=== PATIENT | male | born 1935 | race Caucasian/White ===

== ENCOUNTER → 2017-07-18 | Outpatient (CLI) | payer OTHER, BC ==
[~2017-07-18] MED LIST: ASPIRIN81 M2 PO; CALCIUM 600 +1 EAC1 PO; FISH OIL 1,0001 EAC5 PO; FISH OIL 1,2001 EAC4 PO; FLAX SEED OIL1000 MG PO; FLOMAX0.4 MG PO; GLUCOSAMINE &1 EAC1 PO; LEVOTHYROXINE0.05 MG PO; LIPITOR10 MG PO; MULTIVITAMINS PO; NAPROSYN500 MG PO; PERCOCET PO; PROMETHAZINE HC25 M1 PO
== END ==
LOC: CAT 12:58
DX: K42.9 Umbilical hernia without obstruction or gangrene (principal); M47.896 Other spondylosis, lumbar region

== ENCOUNTER → 2020-01-27 | Outpatient (CLI) | payer OTHER, BC | LOC: ULTRA 12:26 | DX: N64.4 Mastodynia (principal); Z85.3 Personal history of malignant neoplasm of breast ==

== ENCOUNTER 2020-02-22 16:26 | Inpatient (IN) | payer OTHER, BC ==
[~2020-02-22] VITALS: Ht 152.4 cm; Wt 85.8 kg
[2020-02-22 16:38] VITALS: BP 112/44
[2020-02-22 17:42] LABS: ABSOLUTE NEUTROPHILS 12.1 thou/uL (1.4-8.2); BASOPHILS 0.2 % (0.0-2.0); EOSINOPHILS 0.1 % (0.0-3.0); HEMOGLOBIN 11.9 gm/dL (14.0-18.0); LYMPHOCYTES 7.3 % (24.0-44.0); MCH 31.6 pg (26.0-34.0); MCHC 33.9 g/dL (28.0-37.0); MCV 93.3 fL (80.0-100.0); MONOCYTES 7.6 % (1.0-8.0); PLATELET COUNT 185 thou/uL (150-400); POLYS 84.8 % (36.0-66.0); RBC 3.75 mil/uL (4.50-6.00); RDW 13.1 % (10.5-14.5); WBC 14.2 thou/uL (4.0-11.0)
[2020-02-22 17:49] LABS: CALCIUM 9.9 mg/dL (8.5-10.1); CREATININE 1.2 mg/dL (0.7-1.3)
[2020-02-22] MEDS ORDERED: PROLOPRIM100 MG PO (17:50)
[2020-02-22 17:59] LABS: ALBUMIN 3.2 g/dL (3.4-5.0); TOTAL BILIRUBIN 0.8 mg/dL (<0.1-1.0); TOTAL PROTEIN 6.3 g/dL (6.4-8.2); TROPONIN-I 0.1 ng/mL (<0.06)
[2020-02-22 20:11] LABS: URINE BILIRUBIN NEGATIVE (Negative); URINE BLOOD 2+ (Negative); URINE CLARITY SL CLOUDY; URINE COLOR YELLOW; URINE GLUCOSE-RANDOM* NEGATIVE (Negative); URINE KETONES NEGATIVE (Negative); URINE PROTEIN (DIPSTICK) TRACE (Negative); URINE UROBILINOGEN 0.2 E.U./dl (0.2-1.0)
[2020-02-22 20:14] LABS: URINE LEUKOCYTES-REFLEX 3+ (Negative); URINE NITRITE-REFLEX POSITIVE (Negative)
[2020-02-22 20:21] LABS: SQUAMOUS None Seen /LPF (0-3)
[2020-02-22 20:22] LABS: BACTERIA-REFLEX >30 Many /HPF (None Seen); CASTS None Seen /LPF (None Seen); CRYSTALS None Seen /LPF (None Seen); URINE RBC None Seen /HPF (0-2)
[2020-02-22 21:42] VITALS: BP 140/57
[2020-02-22 21:59] LABS: CHOLESTEROL 96 mg/dL (<200); HDL CHOLESTEROL 41 mg/dL (>40); LDL CHOLESTEROL 44 mg/dL (<100); TC:HDL 2.3 Ratio (Not establshd); TRIGLYCERIDE 57 mg/dL (<150); VLDL 11 mg/dL (<40)
[2020-02-22 22:05] LABS: SERUM ASSESSMENT Clear
[2020-02-22 22:30] VITALS: BP 149/52
[2020-02-22 22:45] VITALS: BP 149/52
[2020-02-23] VITALS (7 sets, daily range): BP systolic 114–140; BP diastolic 54–70
[2020-02-23 04:16] LABS: HEMATOCRIT 32.8 % (42.0-52.0); HEMOGLOBIN 11.1 gm/dL (14.0-18.0); MCH 31.7 pg (26.0-34.0); MCHC 33.7 g/dL (28.0-37.0); MCV 93.8 fL (80.0-100.0); RBC 3.5 mil/uL (4.50-6.00); RDW 13.1 % (10.5-14.5); WBC 13.4 thou/uL (4.0-11.0)
[2020-02-23 04:32] LABS: CALCIUM 9.3 mg/dL (8.5-10.1); CREATININE 1.1 mg/dL (0.7-1.3); TROPONIN-I 0.09 ng/mL (<0.06)
--- NOTE | 2020-02-23 13:07 | EKG ---
[facility] [place] [address] ELECTROCARDIOGRAM REPORT Name: ADELIA BOYLE Room #: 354-P ADM IN M.R.#: [id number] Admission: 02/22/20 Attend Phys: Terrance Maharaj MD Discharge: Date of : 39 Report #: [id number] THIS REPORT FOR: cc: Jet Yuen James A. DO Couchonnal, Luis F. 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 Head: renan : 1935 Requested By: Esther Hyatt Order Number: [id number] MD: Carlos Merida Measurements Intervals [place] Rate: 70 P: 3 CO: 204 QRS: -47 QRSD: 121 T: 40 QT: 401 QTc: 433 Interpretive Statements Sinus rhythm Left bundle branch block Baseline wander in lead(s) V3 Compared to ECG 07/22/2015 09:52:02 Left bundle-branch block now present Sinus bradycardia no longer present Left-axis deviation no longer present Left ventricular hypertrophy no longer present Electronically Signed On 02-23-2020 13:05:39 CDT by Carlos Merida [email or web address] <ELECTRONICALLY SIGNED> By: Carlos Merida MD 02/23/20 1305 47 47 Carlos Merida MD /EPI
[2020-02-24 03:40] LABS: ABSOLUTE NEUTROPHILS 10.3 thou/uL (1.4-8.2); BASOPHILS 0.1 % (0.0-2.0); EOSINOPHILS 0.2 % (0.0-3.0); HEMOGLOBIN 11.2 gm/dL (14.0-18.0); LYMPHOCYTES 8.7 % (24.0-44.0); MCH 31.8 pg (26.0-34.0); MCV 93.4 fL (80.0-100.0); PLATELET COUNT 176 thou/uL (150-400); RBC 3.53 mil/uL (4.50-6.00); WBC 12.4 thou/uL (4.0-11.0)
[2020-02-24 04:00] LABS: ALBUMIN 2.7 g/dL (3.4-5.0); ANION GAP 10 mmol/L (7-16); BUN 14 mg/dL (7-18); CALCIUM 9.4 mg/dL (8.5-10.1); CHLORIDE 102 mmol/L (98-107); CO2 22 mmol/L (21-32); CREATININE 0.8 mg/dL (0.7-1.3); GLUCOSE 103 mg/dL (74-106); MAGNESIUM 1.9 mg/dL (1.8-2.4); POTASSIUM 3.8 mmol/L (3.5-5.1); SGOT 39 U/L (15-37); SGPT 46 U/L (30-65); SODIUM 134 mmol/L (136-145); TOTAL BILIRUBIN 0.6 mg/dL (<0.1-1.0); TOTAL PROTEIN 6.1 g/dL (6.4-8.2); TROPONIN-I <0.06 ng/mL (<0.06)
[2020-02-24 05:17] VITALS: BP 125/62
[2020-02-24 07:35] VITALS: BP 133/70
[2020-02-24 13:08] LABS: HAV IgM AB (ANTI-HAV IgM) Negative (Negative); HEPATITIS B SURFACE AG Negative (Negative); HEPATITIS C VIRUS AB <0.1 (0.0-0.9)
--- NOTE | 2020-02-24 15:21 | 2DMMODE ---
[facility] [place] [address] 2 D/M-MODE ECHOCARDIOGRAM Name: ADELIA BOYLE Room #: 200-I ADM IN M.R.#: [id number] Admission: 02/22/20 Attend Phys: Gilbert Anderson MD Discharge: Date of : 39 Report #: [id number] THIS REPORT FOR: cc: Jet Yuen James A. DO Park, Jin S. MD ~ APPROVED REPORT Study performed: 02/24/2020 14:11:08 EXAM: Comprehensive 2D, Doppler, and color-flow Echocardiogram Patient Location: Bedside Room #: 200 Status: routine BSA: 2.12 HR: 86 bpm BP: 133/70 mmHg Other Information Study Quality: Adequate Indications Elevated Troponin 2D Dimensions RVDd: 48.57 mm IVSd: 13.03 (7-11mm) LVOT Diam: 24.30 (18-24mm) LVDd: 48.29 mm PWd: 13.38 (7-11mm) Ascending Ao: 31.09 (22-36mm) LVDs: 33.00 (25-40mm) Aortic Root: 33.09 mm IVC: 28.00 mm Volumes Left Atrial Volume (Systole) Single Plane 4CH: 44.01 mL Single Plane 2CH: 38.30 mL LA ESV Index: 22.00 mL/m2 Aortic Valve AoV Peak Rolan.: 2.06 m/s AO Peak Gr.: 16.93 mmHg LVOT Max P.73 mmHg LVOT Max V: 1.09 m/s ANTONIO Vmax: 2.45 cm2 Mitral Valve [facility] [address] [place] [address] 2 D/M-MODE ECHOCARDIOGRAM Name: ADELIA BOYLE Room #: 200-I [facility] IN [facility]#: [id number] Admission: 02/22/20 Attend Phys: Gilbert Anderson MD Discharge: Date of : 39 Report #: [id number] E/A Ratio: 1.3 MV Decel. Time: 154.27 ms MV E Max Rolan.: 1.05 m/s MV A Rolan.: 0.78 m/s MV PHT: 44.74 ms IVRT: 69.20 ms Pulmonary Valve PV Peak Rolan.: 1.88 m/s PV Peak Gr.: 14.20 mmHg Pulmonary Vein P Vein S: 1.00 m/s P Vein A: 0.38 m/s P Vein D: 0.70 m/s P Vein A Dur.: 69.2 msec P Vein S/D Ratio: 1.43 Tricuspid Valve TR Peak Rolan.: 3.14 m/s RAP Estimate: 10.00 mmHg TR Peak Gr.: 39.50 mmHg PA Pressure: 50.00 mmHg Left Ventricle The left ventricle is normal size. Regional wall motion abnormalities are noted. Mild concentric left ventricular hypertrophy. The left ventricular systolic function is normal. The left ventricular ejection fraction is within the normal range. LVEF is 55-60%. Right Ventricle Right ventricle is dilated. The right ventricular systolic function is normal. Atria The left atrium size is normal. Right atrium is mildly dilated. Aortic Valve Aortic valve is mildly calcified. No aortic regurgitation is present. There is no aortic valvular stenosis. Mitral Valve The mitral valve is normal in structure. Trace mitral regurgitation. No evidence of mitral valve stenosis. Tricuspid Valve The tricuspid valve is normal in structure. Mild tricuspid regurgitation. PAP is estimated at 40 mmHg. [facility] [place] [address] 2 D/M-MODE ECHOCARDIOGRAM Name: ADELIA BOYLE Room #: 200-I ADM IN .R.#: [id number] Admission: 02/22/20 Attend Phys: Gilbert Anderson MD Discharge: Date of : 39 Report #: [id number] Pulmonic Valve Pulmonic valve is not well visualized. There is no pulmonic valvular regurgitation. Great Vessels The aortic root is normal in size. IVC is dilated and collapses >50% with inspiration. Pericardium There is no pericardial effusion. <Conclusion> The left ventricle is normal size. Mild concentric left ventricular hypertrophy. The left ventricular systolic function is normal. Right ventricle is dilated. The left atrium size is normal. Aortic valve is mildly calcified. Trace mitral regurgitation. Mild tricuspid regurgitation. PAP is estimated at 40 mmHg. <ELECTRONICALLY SIGNED> By: Domingo Carrasco MD 02/24/20 1519 18 18 Domingo Carrasco MD /INF
[2020-02-24 17:15] VITALS: BP 114/53
[2020-02-25 05:31] VITALS: BP 109/51
[2020-02-25 07:15] VITALS: BP 99/47
[2020-02-25 11:00] VITALS: BP 142/53
[2020-02-25 15:44] VITALS: BP 117/68
[2020-02-25 19:30] VITALS: BP 123/52
[2020-02-25 19:53] VITALS: BP 123/52
[2020-02-26 04:44] VITALS: BP 134/58
[2020-02-26 05:04] LABS: HEMATOCRIT 32.8 % (42.0-52.0); HEMOGLOBIN 11.2 gm/dL (14.0-18.0); MCH 31.3 pg (26.0-34.0); MCHC 34.1 g/dL (28.0-37.0); MCV 91.9 fL (80.0-100.0); RBC 3.57 mil/uL (4.50-6.00); RDW 12.9 % (10.5-14.5); WBC 11.7 thou/uL (4.0-11.0)
[2020-02-26 05:31] LABS: ALBUMIN 2.7 g/dL (3.4-5.0); CALCIUM 9.1 mg/dL (8.5-10.1); CREATININE 0.8 mg/dL (0.7-1.3); POTASSIUM 3.9 mmol/L (3.5-5.1); TOTAL BILIRUBIN 0.7 mg/dL (<0.1-1.0); TOTAL PROTEIN 5.6 g/dL (6.4-8.2)
[2020-02-26 07:13] VITALS: BP 140/62
[2020-02-26 11:10] VITALS: BP 130/67
[2020-02-26] MEDS ORDERED: MIRALAX17 GM PO (12:59)
[2020-02-26] MEDS ORDERED: ACETAMINOPHEN650 MG RECTAL (12:59)
[2020-02-26] MEDS ORDERED: CEFUROXIME250 MG PO (12:59)
[2020-02-26] MEDS ORDERED: AZITHROMYCIN500 MG PO (12:59)
[2020-02-26] MEDS ORDERED: MUCINEX600 MG PO (12:59)
[2020-02-26 13:46] VITALS: BP 130/67
== END 2020-02-26 13:56 | disposition home or self-care (01) | DRG 871 ==
LOC: ER 16:26 → EROBS 21:15 → 2N 21:15 → 3W 22:30 → 2N 02-23 22:36
PROVIDERS: Emergency Medicine; Emergency Medicine Emergency Medical Services; Hospitalist; Nurse Practitioner Family; ADMIT Internal Medicine
DX: A41.9 Sepsis, unspecified organism (principal); J18.9 Pneumonia, unspecified organism; J96.01 Acute respiratory failure with hypoxia; N12 Tubulo-interstitial nephritis, not specified as acute or chronic; E46 Unspecified protein-calorie malnutrition; E89.0 Postprocedural hypothyroidism; E78.00 Pure hypercholesterolemia, unspecified; F17.210 Nicotine dependence, cigarettes, uncomplicated; N40.0 Benign prostatic hyperplasia without lower urinary tract symptoms; Z96.619 Presence of unspecified artificial shoulder joint; K76.9 Liver disease, unspecified; B96.1 Klebsiella pneumoniae [K. pneumoniae] as the cause of diseases classified elsewhere; I95.89 Other hypotension; Z85.3 Personal history of malignant neoplasm of breast; Z90.12 Acquired absence of left breast and nipple; Z85.850 Personal history of malignant neoplasm of thyroid; Z85.51 Personal history of malignant neoplasm of bladder; Z79.82 Long term (current) use of aspirin; Z79.899 Other long term (current) drug therapy; Z79.1 Long term (current) use of non-steroidal anti-inflammatories (NSAID); Z68.37 Body mass index [BMI] 37.0-37.9, adult; Z86.010 Personal history of colon polyps; Z20.828 Contact with and (suspected) exposure to other viral communicable diseases
CPT/HCPCS: 10081; 10879

== ENCOUNTER → 2020-03-10 | Outpatient (CLI) | payer OTHER, BC ==
[~2020-03-10] MED LIST changes: +ACETAMINOPHEN650 MG RECTAL; +AZITHROMYCIN500 MG PO; +CEFUROXIME250 MG PO; +MIRALAX17 GM PO; +MUCINEX600 MG PO; +PROLOPRIM100 MG PO
== END ==
LOC: SJCVCIMAG 07:30
DX: I44.0 Atrioventricular block, first degree (principal); R00.0 Tachycardia, unspecified; R94.31 Abnormal electrocardiogram [ECG] [EKG]; E78.5 Hyperlipidemia, unspecified; F17.200 Nicotine dependence, unspecified, uncomplicated; Z79.899 Other long term (current) drug therapy

== ENCOUNTER → 2020-05-01 | Outpatient (CLI) | payer OTHER, BC ==
[2020-05-01 08:56] LABS: CREATININE 1.2 mg/dL (0.7-1.3)
== END ==
LOC: MRI 08:19
PROVIDERS: ATTEND Specialist
DX: K76.89 Other specified diseases of liver (principal); R93.2 Abnormal findings on diagnostic imaging of liver and biliary tract; R94.5 Abnormal results of liver function studies

== ENCOUNTER → 2020-09-14 | Outpatient (CLI) | payer OTHER, BC | LOC: SJCVC 13:08 | PROVIDERS: ATTEND Internal Medicine | DX: R94.31 Abnormal electrocardiogram [ECG] [EKG] (principal); I44.0 Atrioventricular block, first degree; I51.7 Cardiomegaly; I63.9 Cerebral infarction, unspecified; E78.5 Hyperlipidemia, unspecified; Z79.899 Other long term (current) drug therapy ==

== ENCOUNTER → 2020-09-16 | Outpatient (CLI) | payer OTHER, BC ==
[2020-09-16 12:37] VITALS: BP 111/58
--- NOTE | 2020-09-21 12:31 | LINQ ---
[facility] [place] [address] LINQ PROCEDURE REPORT Name: ADELIA BOYLE [id number] Admission: 09/16/20 Attend Phys: Cachorro Baxter Discharge: Date of : 39 Report #: [id number] THIS REPORT FOR: cc: Jet Yuen James A. DO Lammoglia, Francisco J. MD ~ THIS REPORT FOR: //name// APPROVED REPORT Study performed: 09/16/2020 13:10:10 Patient Status: Out-Patient Room #: Event Personnel: Cachorro Baxter MD Exam: Reveal LINQ insertion Indications: Cryptic stroke Implanted Devices: [employer] Reveal LINQ, model#LNQ11, serical #[id number], use by 2021-04-26 Procedure The patient underwent informed consent. We discussed the details of the procedure including the risks, which include, but not limited to bleeding, infection, vascular damage, cardiac perforation, and pneumothorax. After informed consent was obtained the patient was brought to the cardiac catheterization laboratory prepped and hold in stable condition. The left chest was prepped and draped in usual sterile manner. Utilizing 1% lidocaine a wheal was raised and a tract subcutaneously was identified and instilled with 1% lidocaine. Utilizing 11 blade a small incision was made. With both sharp and blunt dissection a pocket was generated and the device was deployed per standard deployment tool. Subcutaneous tissue was opposed and secured with 2 simple interrupted sutures and the skin was closed with a 3-0 absorbable running subcuticular stitch. Steri-Strips 4 x 4 OpSite were utilized. Patient tolerated procedure well Conclusion 1. Successful implantation of a implantable loop recorder [facility] [place] [address] [email or web address] PROCEDURE REPORT Name: YVONNE BOYLESABRINA Collier Room #: REG CL [facility]#: [id number] Admission: 09/16/20 Attend Phys: Ccahorro Freedman Discharge: Date of : 39 Report #: [id number] Recommendations 1. Routine post ILR insertion protocol <ELECTRONICALLY SIGNED> By: Cachorro Baxter MD 09/21/20 1231 123 123 Cachorro Baxter MD /INF
== END | disposition home or self-care (01) ==
LOC: CATH 07:35
PROVIDERS: ATTEND Internal Medicine
DX: I48.91 Unspecified atrial fibrillation (principal); I63.9 Cerebral infarction, unspecified; Z98.890 Other specified postprocedural states; Z79.82 Long term (current) use of aspirin; Z79.899 Other long term (current) drug therapy

== ENCOUNTER → 2021-02-19 | Outpatient (CLI) | payer OTHER, BC ==
[~2021-02-19] MED LIST changes: +CRANBERRY500 M3 PO; +GLUCOSAMINE CH1 EAC4 PO; +LEVO-T50 MCG PO; +NAPROXEN SODIU220 M2 PO; +SUPER THERAVIT1 EACH PO; +UROXATRAL PO
[2021-02-19 16:15] VITALS: BP 119/57
--- NOTE | 2021-02-19 16:16 | NUR ---
IN FOR PICC LINE PLACEMENT AND 1ST DOSE OF CEFEPIME. ADMISSION HISTORY AND ASSESSMENT COMPLETED. MEDICATION RECONCILED. IV TEAM PLACED SINGLE LUMEN PICC IN LEFT UPPER ARM. DAYNE MCCARTHY VERIFIED PROPER PLACEMENT AND OK TO USE. TOLERATED INFUSION WITHOUT INCIDENT. ESTELA CODY VISITED AND INSTRUCTED PATIENT ON HOW TO DO HOME INFUSIONS. PATIENT DISMISSED IN STABLE CONDITION.
--- NOTE | 2021-02-19 17:23 | NUR ---
VAT TO OUTPT INFUSION TO PLACE PICC FOR LT ABX. UNABLE TO CHART NI FOR INSERTION. LUABASILIC ACCESSED X1 ATTEMPT WITH US GUIDE. 4FRSLPICC TRIMMED AT 46CM AND INSERTED TO 46CMM WITH A PEAKED PWAVE CAPTURED WITH ECG. LINE RELEASED TO RN FOR USE. PT CRISTOFER WELL.
== END ==
LOC: OPONC 14:01
PROVIDERS: ATTEND Specialist
DX: A49.8 Other bacterial infections of unspecified site (principal)
CPT/HCPCS: 27000; 95000

== ENCOUNTER → 2021-08-27 | Outpatient (CLI) | payer OTHER, BC | LOC: SJCVCIMAG 08:25 | PROVIDERS: ATTEND Internal Medicine | DX: G45.9 Transient cerebral ischemic attack, unspecified (principal) ==

== ENCOUNTER 2021-11-15 12:35 | Emergency (ER) | payer OTHER, BC ==
[~2021-11-15] VITALS: Ht 180.3 cm; Wt 81.7 kg
== END 2021-11-15 16:42 | disposition left against medical advice (07) ==
LOC: ER 12:35
DX: R07.89 Other chest pain (principal); Z53.21 Procedure and treatment not carried out due to patient leaving prior to being seen by health care provider